=== PATIENT | female | born 1990 | race Caucasian/White ===

== ENCOUNTER 2017-01-04 08:33 | Outpatient (CLI) | payer OTHER ==
[~2017-01-04] VITALS: Ht 160 cm; Wt 78.5 kg
[2017-01-04] MEDS ORDERED: PREN1TAB60 PO (08:41)
[2017-01-04 08:43] VITALS: BP 111/73
[2017-01-04] MEDS ORDERED: PLEASE ENTER HEIGHT AND WEIGHT MC SCH (09:00)
[2017-01-04] MEDS ORDERED: SODIUM CHLORIDE FLUSH 10ML SYR IVF SCH (09:00)
[2017-01-04] MEDS ORDERED: TERBUTALINE 1 MG/ML, 1ML ONE (09:13)
[2017-01-04] MEDS ORDERED: TERBUTALINE 1 MG/ML, 1ML SQ ONE (09:30)
== END 2017-01-04 11:30 | disposition home or self-care (01) ==
LOC: LDOP 08:33
PROVIDERS: ATTEND Obstetrics & Gynecology
DX: O32.1XX0 Maternal care for breech presentation, not applicable or unspecified (principal); O99.513 Diseases of the respiratory system complicating pregnancy, third trimester; J45.909 Unspecified asthma, uncomplicated; Z3A.37 37 weeks gestation of pregnancy
CPT/HCPCS: 59025; 59412; 96372; 99211; J3105; G0463